=== PATIENT | female | born 1940 | race American Indian/Alaskan Native ===

== ENCOUNTER 2017-05-03 00:16 | Emergency (ER) | payer MEDICARE, OTHER ==
[2017-05-03 00:16] VITALS: BMI 29.2
--- NOTE | 2017-05-03 00:21 | ED PDOC ---
Arrival/HPI - General Time Seen by Provider: 05/03/17 00:20 Historian: Patient - History of Present Illness Narrative History of Present Illness (Text): 05/03/17 00:21 76 year old female, pmh including hypertension/hyperlipidemia/diabetes/chronic coughing which she is following up with karthik Vuong, complaining of bilateral lower extremities swelling and pain but worsened on the left lower extremity. Pt. stated that she has been having dark pigmented skin discoloration on the bilateral lower extremities with on and off swelling for months, been having worsening of the swelling to the left foot/ankle/tibial and fibular region, no chest pain or shortness of breath, no night sweat, no rash, no other medical or psychological complaints. Past Medical History - Provider Review Nursing Documentation Reviewed: Yes - Tetanus Immunization Tetanus Immunization: Unknown - Cardiac Hx Cardiac Disorders: Yes Hx Hyperlipemia: Yes Hx Hypertension: Yes - Pulmonary Hx Respiratory Disorders: No - Neurological Hx Neurological Disorder: No - HEENT Hx HEENT Disorder: No - Renal Hx Renal Disorder: No - Endocrine/Metabolic Hx Endocrine Disorders: Yes Hx Diabetes Mellitus Type 2: Yes - Hematological/Oncological Hx Blood Disorders: No - Integumentary Hx Dermatological Disorder: No - Musculoskeletal/Rheumatological Hx Musculoskeletal Disorders: No - Gastrointestinal Hx Gastrointestinal Disorders: Yes Hx Gastroesophageal Reflux: Yes - Genitourinary/Gynecological Hx Genitourinary Disorders: No - Psychiatric Hx Psychophysiologic Disorder: No Hx Substance Use: No - Past Surgical History Past Surgical History: Non-Contributing - Surgical History Hx Hysterectomy: Yes - Suicidal Assessment Feels Threatened In Home Enviroment: No Family/Social History - Physician Review Nursing Documentation Reviewed: Yes Family/Social History: Unknown Family HX Smoking Status: Never Smoked Hx Alcohol Use: No Hx Substance Use: No Allergies/Home Meds Allergies/Adverse Reactions: Allergies No Known Allergies Allergy (Verified 01/24/15 17:37) Home Medications: Home Meds Medication Instructions Recorded Confirmed Aspirin [Adult Low Dose Aspirin EC] 81 mg PO DAILY 05/03/17 05/03/17 Atorvastatin [Lipitor] 20 mg PO DAILY 05/03/17 05/03/17 Benzonatate [Tessalon Perles] 100 mg PO TID 05/03/17 05/03/17 Cholecalciferol (Vitamin D3) 400 unit PO DAILY 10/07/17 10/07/17 [Vitamin D3] Doxycycline Hyclate [Morgidox] 100 mg PO DAILY 05/03/17 05/03/17 Etodolac [Lodine] 500 mg PO DAILY 05/03/17 05/03/17 Furosemide [Lasix] 20 mg PO DAILY 05/03/17 05/03/17 Losartan [Cozaar] 50 mg PO DAILY 05/03/17 05/03/17 Metformin HCl [Metformin HCl ER] 500 mg PO DAILY 05/03/17 05/03/17 Omeprazole Magnesium [Prilosec Otc] 20 mg PO DAILY 05/03/17 05/03/17 Review of Systems - Review of Systems Constitutional: absent: Fatigue, Fevers Eyes: absent: Vision Changes ENT: absent: Hearing Changes Respiratory: absent: SOB, Cough Cardiovascular: absent: Chest Pain Gastrointestinal: Other (edema). absent: Abdominal Pain, Nausea, Vomiting Musculoskeletal: absent: Arthralgias, Back Pain Skin: absent: Rash, Pruritis Neurological: absent: Headache Physical Exam Vital Signs Reviewed: Yes Vital Signs Temp Pulse Resp Pulse Ox 05/03/17 00:36 98.5 F 86 18 100 Temperature: Afebrile Blood Pressure: Normal Pulse: Regular Respiratory Rate: Normal Appearance: Positive for: Well-Appearing, Non-Toxic, Comfortable Pain Distress: Mild Mental Status: Positive for: Alert and Oriented X 3 - Systems Exam Head: Present: Atraumatic, Normocephalic Pupils: Present: PERRL Extroacular Muscles: Present: EOMI Conjunctiva: Present: Normal Mouth: Present: Moist Mucous Membranes Pharnyx: No: ERYTHEMA, EXUDATE, TONSILS ENLARGED, Uvular Deviation, Soft Palate/ Uvular Edema Nose (External): Present: Atraumatic. No: Abrasion, Contusion, Laceration Nose (Internal): Present: Normal Inspection, No Active Bleeding. No: Rhinorrhea Neck: Present: Normal Range of Motion Respiratory/Chest: Present: Clear to Auscultation, Good Air Exchange. No: Respiratory Distress, Accessory Muscle Use Cardiovascular: Present: Regular Rate and Rhythm, Normal S1, S2, Other (1+ pedal edema on the RLE from mid tibia/fibular down to the foot with +DPPT pulses. 2+ edema on the LLE from proximal 1/3 tibia/fibular to the lt. foot. Bilateral lower extremities with hyperpigmentation and signs of chronic venuous insuffiency. ). No: Murmurs Abdomen: Present: Normal Bowel Sounds. No: Tenderness, Distention, Peritoneal Signs Back: Present: Normal Inspection Upper Extremity: Present: Normal Inspection. No: Cyanosis, Edema Lower Extremity: Present: Normal Inspection. No: Edema Neurological: Present: GCS=15, CN II-XII Intact, Speech Normal Skin: Present: Warm, Dry, Normal Color. No: Rashes Psychiatric: Present: Alert, Oriented x 3, Normal Insight, Normal Concentration Medical Decision Making ED Course and Treatment: 05/03/17 01:01 -labs/bnp -bilateral lower extremities venuous doppler -observe and reassesss 05/03/17 02:04 -Labs are nonsignificant, BNP within jimmy limit. -Bilateral lower extremities: as per preliminary report, no acute DVT -Discharge home with compression stocking, elevation, follow up with your own pmd and vascular surgeon/boom truck driver within 2 days, return to the ER for any new or worsening signs or symptoms. - Lab Interpretations Lab Results: 05/03/17 01:05 05/03/17 01:05 Lab Results 05/03/17 01:05: WBC 6.4, RBC 4.57, Hgb 13.6, Hct 41.5, MCV 90.8, MCH 29.8, MCHC 32.8, RDW 14.9 H, Plt Count 220, MPV 9.9, Gran % 48.3 L, Lymph % (Auto) 36.1 H, [place] % (Auto) 9.5 H, Eos % (Auto) 5.5 H, Baso % (Auto) 0.6, Gran # 3.09, Lymph # 2.3, [place] # 0.6, Eos # 0.4, Baso # 0.04 05/03/17 01:05: Sodium 142, Potassium 3.7, Chloride 101, Carbon Dioxide 32, Anion Gap 13, BUN 17, Creatinine 0.8, Est GFR ( Amer) > 60, Est GFR (Non- Af Amer) > 60, Random Glucose 111 H, Calcium 9.8, Total Bilirubin 0.5, AST 25, ALT 26, Alkaline Phosphatase 62, NT-Pro-B Natriuret Pep 138, Total Protein 7.2, Albumin 4.0, Globulin 3.2, Albumin/Globulin Ratio 1.3 I have reviewed the lab results: Yes Interpretation: No clinic. lab abnormalty - RAD Interpretation Radiology Orders: 05/03/17 00:51 DUPLEX LOWER EXTRM VEIN BILAT [US] Stat -Bilateral lower extremities: as per preliminary report, no acute DVT [employer]ppings: Radiologist - PA / [employer] / Resident Statement MD/DO has reviewed & agrees with the documentation as recorded. Disposition/Present on Arrival - Present on Arrival Any Indicators Present on Arrival: No History of DVT/PE: No History of Uncontrolled Diabetes: No Urinary Catheter: No History of Decub. Ulcer: No History Surgical Site Infection Following: None - Disposition Have Diagnosis and Disposition been Completed?: Yes Diagnosis: Chronic venous insufficiency, Pedal edema Disposition: HOME/ ROUTINE Disposition Time: 02:04 Patient Plan: Discharge Patient Problems: Current Active Problems Problem Status Onset Chronic venous insufficiency Acute Pedal edema Acute Condition: IMPROVED Additional Instructions: -Discharge home with compression stocking, elevation, follow up with your own pmd and vascular surgeon/boom truck driver within 2 days, return to the ER for any new or worsening signs or symptoms. Prescriptions: Compression Socks, Medium [Futuro Restoring] 1 each MC DAILY #1 each Referrals: Freddie Chapman MD [Primary Care Provider] - Follow up with primary Reynaldo Watkins Jr., MD [Staff Provider] - Follow up with primary Ed Jay MD [Staff Provider] - Follow up with primary Forms: WORK NOTE
[2017-05-03 00:38] VITALS: RESP 18; TEMP 98.5
[2017-05-03 01:22] LABS: BASO # 0.04 K/mm3 (0.0-2.0); BASO % 0.6 % (0.0-3.0); EOS # 0.4 (0.0-0.7); EOS % 5.5 % (1.5-5.0); GRAN # 3.09 (1.4-6.5); GRAN % 48.3 % (50.0-68.0); HEMATOCRIT 41.5 % (36.0-48.0); LYMPH # 2.3 (1.2-3.4); LYMPH % 36.1 % (22.0-35.0); MEAN CELL VOLUME 90.8 fl (80.0-105.0); MEAN CORPUSCULAR HEMOGLOBIN 29.8 pg (25.0-35.0); MEAN CORPUSCULAR HGB CONC 32.8 g/dl (31.0-37.0); MEAN PLATELET VOLUME 9.9 fl (7.0-11.0); MONO # 0.6 (0.1-0.6); MONO % 9.5 % (1.0-6.0); RED CELL DISTRIBUTION WIDTH 14.9 % (11.5-14.5); WHITE BLOOD COUNT 6.4 10^3/ul (4.5-11.0)
[2017-05-03 01:31] LABS: ALB/GLOB RATIO 1.3 (1.1-1.8); ALKALINE PHOSPHATASE 62 U/L (38-126); ALT/SGPT 26 U/L (7-56); AST/SGOT 25 U/L (14-36); BILIRUBIN,TOTAL 0.5 mg/dL (0.2-1.3); BLOOD UREA NITROGEN 17 mg/dL (7-21); CALCIUM 9.8 mg/dL (8.4-10.5); CARBON DIOXIDE 32 mmol/L (21-33); CHLORIDE 101 mmol/L (98-107); GFR AFRICAN-AMERICAN > 60; GLUCOSE,RANDOM 111 mg/dL (70-110); POTASSIUM 3.7 mmol/L (3.6-5.0); SODIUM 142 mmol/L (132-148); TOTAL PROTEIN 7.2 g/dL (5.8-8.3)
[2017-05-03 02:26] VITALS: BP 147/84; PULSE 75; O2SAT 99
--- NOTE | 2017-05-03 15:23 | US ---
HISTORY: Leg pain and swelling. Evaluate for DVT PHYSICIAN(S): Kevin Gray MD. TECHNIQUE: Duplex sonography and color-flow Doppler with graded compression were used to evaluate the deep venous systems of both lower extremities. FINDINGS: The visualized deep venous systems of both lower extremities are sonographically normal and compressible. Normal wave forms and augmentation are seen. There is no sonographic evidence for deep venous thrombosis in the visualized segments of both lower extremities. IMPRESSION: No sonographic evidence for deep venous thrombosis in the visualized segments of both lower extremities.
== END 2017-05-03 02:25 | disposition home or self-care (01) ==
LOC: ED 00:16
DX: I87.2 Venous insufficiency (chronic) (peripheral) (principal); R60.0 Localized edema; I10 Essential (primary) hypertension; E78.5 Hyperlipidemia, unspecified; E11.9 Type 2 diabetes mellitus without complications

== ENCOUNTER 2017-05-10 01:14 | Emergency (ER) | payer MEDICARE, OTHER ==
[2017-05-10 01:14] VITALS: BMI 29.2
[2017-05-10 01:37] VITALS: BP 194/86; PULSE 78; RESP 16; TEMP 98.3; O2SAT 98
--- NOTE | 2017-05-10 02:31 | ED PDOC ---
Arrival/HPI - General Chief Complaint: Lower Extremity Problem/Injury Time Seen by Provider: 05/10/17 01:30 Historian: Patient - History of Present Illness Narrative History of Present Illness (Text): 05/10/17 02:32 A 76 year old female, whose past medical history includes chronic venous insufficiency, presents to the emergency department complaining of increasing left foot pain and swelling over the last month. Patient reported to the emergency department a week ago for same complaint. Reports left foot itching, swelling and occasional sharp pain to ankle. Denies any trauma or injuries. Patient denies any other complaints at this time. PMD: Dr. Chapman Time/Duration: > week Symptom Onset: Sudden Symptom Course: Unchanged Activities at Onset: Rest Context: Home Past Medical History - Provider Review Nursing Documentation Reviewed: Yes - Tetanus Immunization Tetanus Immunization: Unknown - Cardiac Hx Cardiac Disorders: Yes Hx Hypertension: Yes - Pulmonary Hx Respiratory Disorders: No - Neurological Hx Neurological Disorder: No - HEENT Hx HEENT Disorder: No - Renal Hx Renal Disorder: No - Endocrine/Metabolic Hx Endocrine Disorders: Yes Hx Diabetes Mellitus Type 2: Yes - Hematological/Oncological Hx Blood Disorders: No - Integumentary Hx Dermatological Disorder: No - Musculoskeletal/Rheumatological Hx Musculoskeletal Disorders: No - Gastrointestinal Hx Gastrointestinal Disorders: Yes Hx Gastroesophageal Reflux: Yes - Genitourinary/Gynecological Hx Genitourinary Disorders: No - Psychiatric Hx Psychophysiologic Disorder: No Hx Substance Use: No - Past Surgical History Past Surgical History: Non-Contributing - Surgical History Hx Hysterectomy: Yes - Suicidal Assessment Feels Threatened In Home Enviroment: No Family/Social History - Physician Review Nursing Documentation Reviewed: Yes Family/Social History: Other (non contributory) Smoking Status: Never Smoked Hx Alcohol Use: No Hx Substance Use: No Allergies/Home Meds Allergies/Adverse Reactions: Allergies No Known Allergies Allergy (Verified 05/10/17 01:26) Home Medications: Home Meds Medication Instructions Recorded Confirmed Aspirin [Adult Low Dose Aspirin EC] 81 mg PO DAILY 05/03/17 05/10/17 Atorvastatin [Lipitor] 20 mg PO DAILY 05/03/17 05/10/17 Benzonatate [Tessalon Perles] 100 mg PO TID 05/03/17 05/10/17 Cholecalciferol (Vitamin D3) 400 unit PO DAILY 05/03/17 05/10/17 [Vitamin D3] Doxycycline Hyclate [Morgidox] 100 mg PO DAILY 05/03/17 05/10/17 Etodolac [Lodine] 500 mg PO DAILY 05/03/17 05/10/17 Furosemide [Lasix] 20 mg PO DAILY 05/03/17 05/10/17 Losartan [Cozaar] 50 mg PO DAILY 05/03/17 05/10/17 Metformin HCl [Metformin HCl ER] 500 mg PO DAILY 05/03/17 05/10/17 Omeprazole Magnesium [Prilosec Otc] 20 mg PO DAILY 05/03/17 05/10/17 Review of Systems - Physician Review All systems were reviewed & negative as marked: Yes - Review of Systems Constitutional: absent: Fevers Respiratory: absent: SOB Musculoskeletal: Other (left foot itching, swelling and pain) Physical Exam Vital Signs Reviewed: Yes Vital Signs Temp Pulse Resp BP Pulse Ox 05/10/17 01:36 98.3 F 78 16 194/86 H 98 Appearance: Positive for: Well-Appearing, Non-Toxic, Comfortable Pain Distress: None Mental Status: Positive for: Alert and Oriented X 3 - Systems Exam Head: Present: Atraumatic Extroacular Muscles: Present: EOMI Mouth: Present: Moist Mucous Membranes Neck: Present: Normal Range of Motion Respiratory/Chest: Present: Clear to Auscultation, Good Air Exchange. No: Respiratory Distress, Accessory Muscle Use Cardiovascular: Present: Regular Rate and Rhythm, Normal S1, S2. No: Murmurs Abdomen: Present: Normal Bowel Sounds. No: Tenderness, Distention, Peritoneal Signs Upper Extremity: No: Cyanosis, Edema Lower Extremity: Present: Edema (trace edema b/l mid chow to feet), Neurovascularly Intact, Other (pulses palpable b/l; strength and sensation intact. ) Neurological: Present: GCS=15, CN II-XII Intact, Motor Func Grossly Intact, Normal Sensory Function Skin: Present: Warm, Dry. No: Rashes Psychiatric: Present: Alert, Oriented x 3 Medical Decision Making ED Course and Treatment: 05/10/17 03:11 Radiology of left ankle: No acute fracture, interpreted by me. 05/10/17 03:13 pt resting comfortably no distress. she is pleasant and appears well. she had neg doppler and labs a week ago for same complaint and edema is quite minimal on my exam. disc results, plan for pmd f/u on friday, and rtr. - RAD Interpretation Radiology Orders: 05/10/17 01:44 ANKLE LEFT 3 VIEWS ROUTINE [RAD] Stat - Scribe Statement The provider has reviewed the documentation as recorded by the Ella Rodriguez Provider Scribe Attestation: All medical record entries made by the Scribe were at my direction and personally dictated by me. I have reviewed the chart and agree that the record accurately reflects my personal performance of the history, physical exam, medical decision making, and the department course for this patient. I have also personally directed, reviewed, and agree with the discharge instructions and disposition. Disposition/Present on Arrival - Present on Arrival Any Indicators Present on Arrival: No History of DVT/PE: No History of Uncontrolled Diabetes: No Urinary Catheter: No History of Decub. Ulcer: No History Surgical Site Infection Following: None - Disposition Have Diagnosis and Disposition been Completed?: Yes Diagnosis: Leg pain, Leg swelling Disposition: HOME/ ROUTINE Disposition Time: 03:13 Condition: GOOD Additional Instructions: Please follow up with your doctor on Friday. Return to the ER for any worsening symptoms or for any other concerns. Referrals: Freddie Chapman MD [Primary Care Provider] - Follow up with primary Forms: [employer] (Setswana)
--- NOTE | 2017-05-10 09:35 | RAD ---
PROCEDURE: Left Ankle Radiographs. HISTORY: pain COMPARISON: None FINDINGS: BONES: Slight cortical irregularity of the cortex of the inferior aspect medial malleolus possibly representing some mild degenerative changes with enthesophyte formation however the possibility of a nondisplaced fracture cannot be completely excluded. Repeat radiographs 5-10 days recommended further evaluation. . Prominent posterior and smaller plantar surface calcaneal enthesophytes are present JOINTS: Mild degenerative osteoarthritis. Ankle mortise maintained. Talar dome intact SOFT TISSUES: There is mild soft tissue swelling overlying the medial malleolus. Mild OTHER FINDINGS: None. IMPRESSION: Slight cortical irregularity of the inferior aspect medial malleolus which could represent some degenerative changes however the possibility of a nondisplaced fracture cannot be completely excluded. Recommend repeat radiographs 5-10 days as most fractures become radiographically evident in this timeframe. Mild soft tissue swelling overlying the medial malleolus. . Note this report was placed in PA review folder followup
== END 2017-05-10 03:15 | disposition home or self-care (01) ==
LOC: ED 01:14
DX: M79.89 Other specified soft tissue disorders (principal); M79.672 Pain in left foot; E11.9 Type 2 diabetes mellitus without complications; I10 Essential (primary) hypertension; I87.2 Venous insufficiency (chronic) (peripheral)

== ENCOUNTER 2017-10-12 16:28 | Emergency (ER) | payer MEDICARE, OTHER ==
[2017-10-12 16:28] VITALS: BMI 29.2
[2017-10-12] MEDS ORDERED: TDAP Vaccine 0.5 mL Syr IM ONE (18:12)
[2017-10-12 19:05] LABS: BASO # 0.06 K/mm3 (0.0-2.0); BASO % 0.5 % (0.0-3.0); EOS # 0.1 (0.0-0.7); EOS % 1.1 % (1.5-5.0); GRAN # 8.01 (1.4-6.5); GRAN % 73.5 % (50.0-68.0); HEMOGLOBIN 14.8 g/dL (12.0-16.0); LYMPH # 1.8 (1.2-3.4); LYMPH % 16.3 % (22.0-35.0); MEAN CELL VOLUME 90.7 fl (80.0-105.0); MEAN CORPUSCULAR HEMOGLOBIN 29.8 pg (25.0-35.0); MEAN CORPUSCULAR HGB CONC 32.9 g/dl (31.0-37.0); MEAN PLATELET VOLUME 9.9 fl (7.0-11.0); MONO # 0.9 (0.1-0.6); MONO % 8.6 % (1.0-6.0); RBC 4.96 10^6/uL (3.5-6.1); RED CELL DISTRIBUTION WIDTH 14.6 % (11.5-14.5); WHITE BLOOD COUNT 10.9 10^3/ul (4.5-11.0)
--- NOTE | 2017-10-12 19:08 | ED PDOC ---
Arrival/HPI - General Chief Complaint: Trauma Time Seen by Provider: 10/12/17 17:34 Historian: Patient - History of Present Illness Narrative History of Present Illness (Text): 10/12/17 19:02 77yr old female presents today with luq abd pain, right hand pain and right sided head injury with laceration s/p fall at 10am this morning. pt states she tripped and fell landing on the sidewalk today. pt denies LOC. c/o right sided frontal headache with bleeding laceration. pt states she hasn't been able to stop the bleeding since the injury. pt denies neck pain. no vomiting/diarrhea. no cp or sob. pt c/o pain to dorsal aspect of right hand. no medications taken at home. pt states she does take a baby aspirin daily. pt denies urinary symptoms. no back pain. no dizziness or weakness. pt denies numbness, weakness, tingling in the extremities. no other complaints. Past Medical History - Provider Review Nursing Documentation Reviewed: Yes - Travel History Have you recently traveled outside [place] w/in the past 3 mons?: No - Infectious Disease Hx of Infectious Diseases: None - Tetanus Immunization Tetanus Immunization: Unknown - Cardiac Hx Cardiac Disorders: Yes Hx Hypertension: Yes - Pulmonary Hx Respiratory Disorders: No - Neurological Hx Neurological Disorder: No - HEENT Hx HEENT Disorder: No - Renal Hx Renal Disorder: No - Endocrine/Metabolic Hx Endocrine Disorders: Yes Hx Diabetes Mellitus Type 2: Yes - Hematological/Oncological Hx Blood Disorders: No - Integumentary Hx Dermatological Disorder: No - Musculoskeletal/Rheumatological Hx Musculoskeletal Disorders: No - Gastrointestinal Hx Gastrointestinal Disorders: Yes Hx Gastroesophageal Reflux: Yes - Genitourinary/Gynecological Hx Genitourinary Disorders: No - Psychiatric Hx Psychophysiologic Disorder: No Hx Substance Use: No - Past Surgical History Past Surgical History: Non-Contributing - Surgical History Hx Hysterectomy: Yes - Anesthesia Hx Anesthesia: Yes Hx Anesthesia Reactions: No Hx Malignant Hyperthermia: No - Suicidal Assessment Feels Threatened In Home Enviroment: No Family/Social History - Physician Review Nursing Documentation Reviewed: Yes Family/Social History: Unknown Family HX Smoking Status: Never Smoked Hx Alcohol Use: No Hx Substance Use: No Allergies/Home Meds Allergies/Adverse Reactions: Allergies pcn Adverse Reaction (Uncoded 10/12/17 17:28) SWELLING Home Medications: Home Meds Medication Instructions Recorded Confirmed Aspirin [Adult Low Dose Aspirin EC] 81 mg PO DAILY 05/03/17 10/12/17 Atorvastatin [Lipitor] 20 mg PO DAILY 05/03/17 10/12/17 Benzonatate [Tessalon Perles] 100 mg PO TID 05/03/17 10/12/17 Cholecalciferol (Vitamin D3) 400 unit PO DAILY 05/03/17 10/12/17 [Vitamin D3] Doxycycline Hyclate [Morgidox] 100 mg PO DAILY 05/03/17 10/12/17 Etodolac [Lodine] 500 mg PO DAILY 05/03/17 10/12/17 Furosemide [Lasix] 20 mg PO DAILY 05/03/17 10/12/17 Losartan [Cozaar] 50 mg PO DAILY 05/03/17 10/12/17 Metformin HCl [Metformin HCl ER] 500 mg PO DAILY 05/03/17 10/12/17 Omeprazole Magnesium [Prilosec Otc] 20 mg PO DAILY 05/03/17 10/12/17 Review of Systems - Review of Systems Constitutional: absent: Fatigue, Fevers Eyes: absent: Vision Changes, Photophobia, Eye Pain ENT: absent: Sinus Congestion Respiratory: absent: SOB, Cough Cardiovascular: absent: Chest Pain, Palpitations Gastrointestinal: Abdominal Pain (right sided upper abdominal pain). absent: Constipation, Diarrhea, Nausea, Vomiting Genitourinary Female: absent: Dysuria, Frequency, Hematuria Musculoskeletal: Arthralgias (right hand/wrist pain). absent: Back Pain, Neck Pain Skin: absent: Rash, Pruritis Neurological: Headache. absent: Dizziness Physical Exam Vital Signs Reviewed: Yes Vital Signs Temp Pulse Resp BP Pulse Ox 10/12/17 23:30 98.3 F 80 17 153/90 H 97 10/12/17 20:14 178/90 H 10/12/17 19:02 194/92 H 10/12/17 17:51 98.0 F 84 18 98 Temperature: Afebrile Blood Pressure: Normal Pulse: Regular Respiratory Rate: Normal Appearance: Positive for: Well-Appearing, Non-Toxic, Comfortable Pain Distress: None Mental Status: Positive for: Alert and Oriented X 3 - Systems Exam Head: Present: Tenderness (+ ttp over right superior orbit), Swelling, Laceration (right forehead; there is a 1cm linear laceration with tenderness and surrounding edema;) Pupils: Present: PERRL Extroacular Muscles: Present: EOMI Conjunctiva: Present: Normal Ears: Present: Normal, NORMAL TM Mouth: Present: Moist Mucous Membranes Pharnyx: Present: Normal Neck: Present: Normal Range of Motion. No: MIDLINE TENDERNESS, Paraspinal Tenderness Respiratory/Chest: Present: Clear to Auscultation, Good Air Exchange. No: Respiratory Distress, Accessory Muscle Use, Decreased Breath Sounds, Retracting , Rhonchi Cardiovascular: Present: Regular Rate and Rhythm. No: Murmurs, Tachycardic Abdomen: Present: Tenderness (+ LUQ tenderness), Normal Bowel Sounds, Guarding. No: Distention, Peritoneal Signs, Rebound Back: Present: Normal Inspection. No: Midline Tenderness, Paraspinal Tenderness Upper Extremity: Present: NORMAL PULSES, Tenderness (right hand; + edema and ecchymosis noted over the dorsal aspect of the hand; + ttp over the 2-5th metacarpals; + minimal dorsal wrist tenderness; full rom of wrist. no snuff box tenderness), Swelling, Neurovascularly Intact, Capillary Refill < 2s Lower Extremity: Present: Normal Inspection, Normal ROM Neurological: Present: GCS=15, Speech Normal Skin: Present: Warm, Dry, Normal Color. No: Rashes Psychiatric: Present: Alert, Oriented x 3 Medical Decision Making ED Course and Treatment: 10/12/17 19:15 77yr old female with head injury, right hand pain and abdominal pain s/p fall around 10am this morning. cbc; wnl cmp: glucose; 131 lipase: wnl cxr; no infiltrate, no effusion right hand xray; no fracture right wrist xray: no fracture head ct: FINDINGS: Brain: There is prominence of sulci, gyri and ventricles. There is no midline shift. There is an age indeterminate lacunar infarct in the right basal ganglia. There are no intra- axial or extra axial mass lesions or areas of hemorrhage. Contreras-white differentiation is maintained. Ventricles: See above Bony structures: Cranial vault is intact. Soft tissues: There is right facial/temporal laceration with bruising. Sinuses: There is no acute sinusitis. Ears and mastoids: Middle ears and mastoids unremarkable. Orbits: Orbital contents are unremarkable. 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 There degenerative changes in the visualized portions of the spine. Soft tissues: There is right facial/temporal soft tissue bruising with laceration. There is air in the soft tissues. Lymph nodes: There is no pathologic adenopathy. Vascular: Lack of contrast limits evaluation of vascular structures Orbits: Orbital contents are unremarkable. Salivary glands: Parotid and submandibular glands are unremarkable. Sinuses: There is no acute sinusitis. Ears and mastoids: Middle ears and mastoids are unremarkable. Dental: Streak artifact from dental fillings degrades image quality. Brain: No focal abnormalities are seen in visualized portion of the brain. Airway: Airway is unremarkable. IMPRESSION: Right facial/temporal laceration bruising, no underlying fracture ct chest/abd/pelvis with IV contrast: FINDINGS: Artifacts: Motion artifact degrades image quality. Lungs: unremarkable Pleural space: Trachea and main bronchi are patent. There is no pneumothorax. There fibrotic changes in both lungs greatest in the lower lobes. There is no lobar or segmental consolidation. There are no effusions. Heart: unremarkable Thyroid: Thyroid is not optimally demonstrated. Right lobe is heterogeneous. Bones/joints: Bony structures are osteopenic. There degenerative changes. Soft tissues: unremarkable Vasculature: The heart is enlarged. There are coronary artery calcifications.There is no aneurysm or dissection. There is perfusion of the 3 arch vessels.There are vascular calcifications. Main pulmonary artery is normal in caliber. Bolus timing and motion limits evaluation of peripheral pulmonary arteries. Lymph nodes: The mediastinum: There are multiple mildly enlarged mediastinal nodes. There mildly enlarged hilar nodes. There is a hiatal hernia. Esophagus is unremarkable. Upper abdomen: Refer to bone report for abdominal findings IMPRESSION: Cardiomegaly and atherosclerotic disease; pulmonary fibrosis greatest at the lung bases; no acute intrathoracic injury, no fracture seen Additional nonemergent findings as described above. EXAM: CT Abdomen and Pelvis With Intravenous Contrast EXAM DATE/TIME: 10/12/2017 7:19 PM CLINICAL HISTORY: 77 years old, female; Pain; Abdominal pain; Chest pain; Patient HX: Trauma/ luq abd tenderness TECHNIQUE: Axial computed tomography images of the abdomen and pelvis with intravenous contrast. All CT scans at this facility use one or more dose reduction techniques, viz.: automated exposure control; ma/kV adjustment per patient size (including targeted exams where dose is matched to indication; i.e. head); or iterative reconstruction technique. Coronal and sagittal reformatted images were created and reviewed. CONTRAST: 50 mL of OMNIPAQUE 350 administered intravenously. COMPARISON: There are no prior studies for comparison. FINDINGS: Artifacts: Motion artifact degrades image quality. Streak artifact degrades image quality. Lower thorax: Refer to prior report for chest findings ABDOMEN: Liver: There is fatty infiltration of the liver. Gallbladder and bile ducts: Gallbladder is distended. There small calcified stones.Common duct is unremarkable. Pancreas: unremarkable Spleen: Spleen is unremarkable. There is an accessory spleen in the left upper quadrant. Adrenals: There is mild thickening of the both adrenals. Kidneys and ureters: unremarkable Stomach and bowel: Stomach is almost completely empty. Rotation is normal small bowel is mildly distended with fluid and air. There is no obstruction. Ileocecal region is unremarkable. Appendix and terminal ileum are unremarkable. There is moderate stool in the colon. There is extensive sigmoid diverticulosis. Appendix: See stomach and bowel PELVIS: Bladder: unremarkable Reproductive: Uterus is absent. There are no adnexal masses. ABDOMEN and PELVIS: Intraperitoneal space: There is no free air or free fluid. Bones/joints: Bony structures are osteopenic. There is anterolisthesis L4 and L5. There is disc bulging L4-L5 and L5-S1. The There is severe degenerative changes in the right hip. Soft tissues: unremarkable Vasculature: There are vascular calcifications. There is mild dilatation of the infrarenal abdominal aorta, 2.17 m in maximal diameter. There is mural thrombus. Lymph nodes: There is no pathologic adenopathy. IMPRESSION: No acute solid visceral or bowel injury no fracture seen; fatty liver; gallstones Additional nonemergent findings as described above. pt seen and evaluated by dr. villaseñor; wounds irrigated with copious amounts of NS using high pressure irrigation laceration repair with dermabond; right hand placed into volar and thumb spica splint; pt was advised to f/u with the orthopedist. 10/12/17 22:52 discussed all results in depth with the patient and her son. stressed importance of f/u with PMD for abnormal ct results. copy of ct results given to patient to f/u with pmd Patient verbalizes understanding of discharge instructions and need for immediate followup. all aspects of this case were discussed the attending of record. impression; fall, head injury, laceration, forehead, hand injury tylenol every 4 hours as needed for pain follow up with the orthopedist within the next 2 days follow up with the primary care physician within the next [address] scans rest,ice, elevation keep wound clean and dry return immediately if signs of infection develop; high fevers, increasing pain, redness, swelling or purulent discharge develop return immediately if any other concerning symptoms develop. Reassessment Condition: Re-examined, Improved - Lab Interpretations Lab Results: 10/12/17 18:50 10/12/17 18:50 Lab Results 10/12/17 18:50: Lipase 93 10/12/17 18:50: WBC 10.9 D, RBC 4.96, Hgb 14.8, Hct 45.0, MCV 90.7, MCH 29.8, MCHC 32.9, RDW 14.6 H, Plt Count 234, MPV 9.9, Gran % 73.5 H, Lymph % (Auto) 16.3 L, [place] % (Auto) 8.6 H, Eos % (Auto) 1.1 L, Baso % (Auto) 0.5, Gran # 8.01 H, Lymph # (Auto) 1.8, [place] # (Auto) 0.9 H, Eos # (Auto) 0.1, Baso # (Auto) 0.06 10/12/17 18:50: Sodium 143, Potassium 4.0, Chloride 102, Carbon Dioxide 31, Anion Gap 15, BUN 15, Creatinine 0.8, Est GFR ( Amer) > 60, Est GFR (Non- Af Amer) > 60, Random Glucose 131 H, Calcium 10.4, Total Bilirubin 0.9, AST 30, ALT 30, Alkaline Phosphatase 61, Total Protein 7.6, Albumin 4.1, Globulin 3.6, Albumin/Globulin Ratio 1.2 10/12/17 18:50: PT 12.9 H, INR 1.13 H, APTT 34.7 10/12/17 08:30: Urine Color Yellow, Urine Appearance Clear, Urine pH 6.5, Ur Specific [place] 1.020, Urine Protein Negative, Urine Glucose (UA) Negative, Urine Ketones Negative, Urine Blood Negative, Urine Nitrate Negative, Urine Bilirubin Negative, Urine Urobilinogen 0.2, Ur Leukocyte Esterase Negative - RAD Interpretation Radiology Orders: 10/12/17 18:12 HEAD W/O CONTRAST [CT] Stat MAXILLOFACIAL W/O CONTRAST [CT] Stat 10/12/17 18:14 HAND RIGHT 3 VIEWS [RAD] Stat WRIST, RIGHT 3 VIEWS [RAD] Stat 10/12/17 19:09 CHEST ONE VIEW [RAD] Stat 10/12/17 19:19 CHEST,ABD,PEL W/IV CONT ONLY [CT] Stat - Medication Orders Current Medication Orders: Discontinued Medications Acetaminophen (Tylenol 325mg Tab) 975 mg PO STAT STA Stop: 10/12/17 18:14 Last Admin: 10/12/17 18:52 Dose: 975 mg MAR Pain/Vitals Document 10/12/17 18:52 GMD (Rec: 10/12/17 18:52 GMD [id number]) Presence of Pain Presence of Pain Yes Location Left, Right or Bilateral Right Pain Location Body Site Wrist Sodium Chloride (Sodium Chloride 0.9%) 500 mls @ 999 mls/hr IV .Q31M STA Stop: 10/12/17 19:52 Last Admin: 10/12/17 19:58 Dose: 999 mls/hr eMAR Start Stop Document 10/12/17 19:58 GMD (Rec: 10/12/17 19:59 GMD [id number]) Intravenous Solution Start Date 10/12/17 Start Time 19:58 End Date 10/12/17 End time 20:28 Total Infusion Time 30 Tetanus/Reduced Diphtheria/Acell Pertussis (Boostrix Vaccine Inj) 0.5 ml IM .ONCE ONE Stop: 10/12/17 18:13 Last Admin: 10/12/17 18:53 Dose: 0.5 ml Immunization Registry Document 10/12/17 18:53 GMD (Rec: 10/12/17 18:53 GMD [id number]) Immunization Registry Consent Date 08/27/17 Procedure: Wound Repair - Procedure Procedure: Wound Repair: forehead laceration - Performed by Performed by: Mid-level Provider - Indications Indication(s):: Laceration - Location Location:: Face (right side of forehead ) Shape:: Linear Dimensions Length cm: 1.5cm Depth:: Epidermis - Debris Debris:: None - Irrigated Irrigated with ml of normal saline: copious amounts of NS using high pressure irrigation - Complexity Complexity:: Simple (one layer) - Wound repair method Young:: Tissue glue - Complications Complications: NONE - Patient tolerated procedure Patient Tolerated Procedure:: Well Procedures - Splinting Location: right hand Hand-Made Type: fiberglass Splint: thumb spica (and volar splint) Pre-Proc Neuro Vasc Exam: normal Post-Proc Neuro Vasc Exam: normal Disposition/Present on Arrival - Present on Arrival Any Indicators Present on Arrival: No History of DVT/PE: No History of Uncontrolled Diabetes: No Urinary Catheter: No History of Decub. Ulcer: No History Surgical Site Infection Following: None - Disposition Have Diagnosis and Disposition been Completed?: Yes Diagnosis: Head injury, Abdominal pain, Laceration of forehead, Hand pain, Abnormal CT of the abdomen Disposition: HOME/ ROUTINE Disposition Time: 22:58 Patient Plan: Discharge Condition: GOOD Discharge Instructions (ExitCare): Laceration Repair With Glue (DC), Hand Pain (DC), Head Injury Observation (DC), Hand Pain Additional Instructions: tylenol every 4 hours as needed for pain follow up with the orthopedist within the next 2 days follow up with the primary care physician within the next [address] scans rest,ice, elevation keep wound clean and dry return immediately if signs of infection develop; high fevers, increasing pain, redness, swelling or purulent discharge develop return immediately if any other concerning symptoms develop. Referrals: Freddie Chapman MD [Primary Care Provider] - Follow up with primary Pj Spear MD [Staff Provider] - Follow up with primary Fidencio Soto MD [Staff Provider] - Follow up with primary Ricardo Mendiola DO [Staff Provider] - Follow up with primary Forms: [employer] (Latvian)
[2017-10-12 19:15] LABS: ALB/GLOB RATIO 1.2 (1.1-1.8); ALBUMIN 4.1 g/dL (3.0-4.8); ALT/SGPT 30 U/L (7-56); AST/SGOT 30 U/L (14-36); BLOOD UREA NITROGEN 15 mg/dL (7-21); CALCIUM 10.4 mg/dL (8.4-10.5); GFR AFRICAN-AMERICAN > 60; GFR NON-AFRICAN AMERICAN > 60
[2017-10-12] MEDS ORDERED: Sodium Chloride 0.9% 250 ML IV STA (19:20)
[2017-10-12] MEDS ORDERED: Sodium Chloride 0.9% 500 ML IV STA (19:22)
[2017-10-12 19:33] LABS: INR 1.13 (0.93-1.08); PARTIAL THROMBOPLASTIN TIME 34.7 Seconds (25.1-36.5); PROTHROMBIN TIME 12.9 SECONDS (9.4-12.5)
[2017-10-12] MEDS ORDERED: Iohexol 350 MG/100 ML VIAL ONE (20:12)
[2017-10-12 20:56] LABS: PH,URINE 6.5 (4.7-8.0); URINE BILIRUBIN NEGATIVE (NEGATIVE); URINE BLOOD NEGATIVE (NEGATIVE); URINE GLUCOSE (UA) NEGATIVE (NEGATIVE); URINE LEUKOCYTE ESTERASE NEGATIVE Leu/uL (NEGATIVE); URINE PROTEIN NEGATIVE mg/dL (<30 mg/dL); URINE UROBILINOGEN 0.2 E.U./dL (<1 E.U./dL)
[2017-10-12 20:57] LABS: URINE APPEARANCE CLEAR (CLEAR); URINE COLOR YELLOW (YELLOW)
--- NOTE | 2017-10-12 21:44 | CT ---
EXAM: CT Maxillofacial Without Intravenous Contrast EXAM DATE/TIME: 10/12/2017 6:12 PM CLINICAL HISTORY: 77 years old, female; Injury or trauma; Fall; Initial encounter; Abrasion; Forehead; Patient HX: Fall head injury, right forehead/orbital TECHNIQUE: Axial computed tomography images of the face without intravenous contrast. All CT scans at this facility use one or more dose reduction techniques, viz.: automated exposure control; ma/kV adjustment per patient size (including targeted exams where dose is matched to indication; i.e. head); or iterative reconstruction technique. Coronal and sagittal reformatted images were created and reviewed. COMPARISON: There are no prior studies for comparison. FINDINGS: Bones/joints: There are no facial bone fractures. There degenerative changes in the visualized portions of the spine. Soft tissues: There is right facial/temporal soft tissue bruising with laceration. There is air in the soft tissues. Lymph nodes: There is no pathologic adenopathy. Vascular: Lack of contrast limits evaluation of vascular structures Orbits: Orbital contents are unremarkable. Salivary glands: Parotid and submandibular glands are unremarkable. Sinuses: There is no acute sinusitis. Ears and mastoids: Middle ears and mastoids are unremarkable. Dental: Streak artifact from dental fillings degrades image quality. Brain: No focal abnormalities are seen in visualized portion of the brain. Airway: Airway is unremarkable. IMPRESSION: Right facial/temporal laceration bruising, no underlying fracture
--- NOTE | 2017-10-12 21:47 | CT ---
EXAM: CT Head Without Intravenous Contrast EXAM DATE/TIME: 10/12/2017 6:12 PM CLINICAL HISTORY: 77 years old, female; Condition or disease; Headache TECHNIQUE: Axial computed tomography images of the head/brain without intravenous contrast. All CT scans at this facility use one or more dose reduction techniques, viz.: automated exposure control; ma/kV adjustment per patient size (including targeted exams where dose is matched to indication; i.e. head); or iterative reconstruction technique. Coronal and sagittal reformatted images were created and reviewed. COMPARISON: There are no prior studies for comparison. FINDINGS: Brain: There is prominence of sulci, gyri and ventricles. There is no midline shift. There is an age indeterminate lacunar infarct in the right basal ganglia. There are no intra-axial or extra axial mass lesions or areas of hemorrhage. Contreras-white differentiation is maintained. Ventricles: See above Bony structures: Cranial vault is intact. Soft tissues: There is right facial/temporal laceration with bruising. Sinuses: There is no acute sinusitis. Ears and mastoids: Middle ears and mastoids unremarkable. Orbits: Orbital contents are unremarkable. 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
--- NOTE | 2017-10-12 22:02 | CT ---
EXAM: CT Chest With Intravenous Contrast CLINICAL HISTORY: 77 years old, female; Pain; Abdominal pain; Chest pain; Patient HX: Trauma/ luq abd tenderness TECHNIQUE: Axial computed tomography images of the chest with intravenous contrast. All CT scans at this facility use one or more dose reduction techniques, viz.: automated exposure control; ma/kV adjustment per patient size (including targeted exams where dose is matched to indication; i.e. head); or iterative reconstruction technique. Coronal and sagittal reformatted images were created and reviewed. CONTRAST: 50 mL of OMNIPAQUE 350 administered intravenously. COMPARISON: There are no prior studies for comparison. FINDINGS: Artifacts: Motion artifact degrades image quality. Lungs: unremarkable Pleural space: Trachea and main bronchi are patent. There is no pneumothorax. There fibrotic changes in both lungs greatest in the lower lobes. There is no lobar or segmental consolidation. There are no effusions. Heart: unremarkable Thyroid: Thyroid is not optimally demonstrated. Right lobe is heterogeneous. Bones/joints: Bony structures are osteopenic. There degenerative changes. Soft tissues: unremarkable Vasculature: The heart is enlarged. There are coronary artery calcifications.There is no aneurysm or dissection. There is perfusion of the 3 arch vessels.There are vascular calcifications. Main pulmonary artery is normal in caliber. Bolus timing and motion limits evaluation of peripheral pulmonary arteries. Lymph nodes: The mediastinum: There are multiple mildly enlarged mediastinal nodes. There mildly enlarged hilar nodes. There is a hiatal hernia. Esophagus is unremarkable. Upper abdomen: Refer to bone report for abdominal findings IMPRESSION: Cardiomegaly and atherosclerotic disease; pulmonary fibrosis greatest at the lung bases; no acute intrathoracic injury, no fracture seen Additional nonemergent findings as described above. EXAM: CT Abdomen and Pelvis With Intravenous Contrast EXAM DATE/TIME: 10/12/2017 7:19 PM CLINICAL HISTORY: 77 years old, female; Pain; Abdominal pain; Chest pain; Patient HX: Trauma/ luq abd tenderness TECHNIQUE: Axial computed tomography images of the abdomen and pelvis with intravenous contrast. All CT scans at this facility use one or more dose reduction techniques, viz.: automated exposure control; ma/kV adjustment per patient size (including targeted exams where dose is matched to indication; i.e. head); or iterative reconstruction technique. Coronal and sagittal reformatted images were created and reviewed. CONTRAST: 50 mL of OMNIPAQUE 350 administered intravenously. COMPARISON: There are no prior studies for comparison. FINDINGS: Artifacts: Motion artifact degrades image quality. Streak artifact degrades image quality. Lower thorax: Refer to prior report for chest findings ABDOMEN: Liver: There is fatty infiltration of the liver. Gallbladder and bile ducts: Gallbladder is distended. There small calcified stones.Common duct is unremarkable. Pancreas: unremarkable Spleen: Spleen is unremarkable. There is an accessory spleen in the left upper quadrant. Adrenals: There is mild thickening of the both adrenals. Kidneys and ureters: unremarkable Stomach and bowel: Stomach is almost completely empty. Rotation is normal small bowel is mildly distended with fluid and air. There is no obstruction. Ileocecal region is unremarkable. Appendix and terminal ileum are unremarkable. There is moderate stool in the colon. There is extensive sigmoid diverticulosis. Appendix: See stomach and bowel PELVIS: Bladder: unremarkable Reproductive: Uterus is absent. There are no adnexal masses. ABDOMEN and PELVIS: Intraperitoneal space: There is no free air or free fluid. Bones/joints: Bony structures are osteopenic. There is anterolisthesis L4 and L5. There is disc bulging L4-L5 and L5-S1. The There is severe degenerative changes in the right hip. Soft tissues: unremarkable Vasculature: There are vascular calcifications. There is mild dilatation of the infrarenal abdominal aorta, 2.17 m in maximal diameter. There is mural thrombus. Lymph nodes: There is no pathologic adenopathy. IMPRESSION: No acute solid visceral or bowel injury no fracture seen; fatty liver; gallstones Additional nonemergent findings as described above.
[2017-10-12 23:51] VITALS: BP 153/90; PULSE 80; RESP 17; TEMP 98.3; O2SAT 97
--- NOTE | 2017-10-13 09:29 | RAD ---
PROCEDURE: CHEST RADIOGRAPH, 1 VIEW HISTORY: abd pain/trauma COMPARISON: 01/01/2017 FINDINGS: LUNGS: Chronic interstitial changes PLEURA: No pneumothorax or pleural fluid seen. CARDIOVASCULAR: Normal. OSSEOUS STRUCTURES: No significant abnormalities. VISUALIZED UPPER ABDOMEN: Normal. OTHER FINDINGS: None. IMPRESSION: Chronic interstitial changes
--- NOTE | 2017-10-13 10:01 | RAD ---
PROCEDURE: Right Hand Radiographs. HISTORY: fall, injury COMPARISON: None. FINDINGS: BONES: Normal. No fracture. JOINTS: Degenerative changes are seen at the base of the thumb SOFT TISSUES: Normal. OTHER FINDINGS: None. IMPRESSION: Degenerative changes of the base of the thumb. No evidence of fracture
--- NOTE | 2017-10-13 10:12 | RAD ---
PROCEDURE: Right Wrist Radiographs. HISTORY: wrist injury COMPARISON: None. FINDINGS: BONES: Normal. No fracture. JOINTS: Severe degenerative changes are seen at the base of the thumb. SOFT TISSUES: Normal. OTHER FINDINGS: None. IMPRESSION: Severe degenerative changes of the base of the thumb
== END 2017-10-12 23:30 | disposition home or self-care (01) ==
LOC: ED 16:28
DX: S01.81XA Laceration without foreign body of other part of head, initial encounter (principal); W01.0XXA Fall on same level from slipping, tripping and stumbling without subsequent striking against object, initial encounter; Y92.480 Sidewalk as the place of occurrence of the external cause; R10.12 Left upper quadrant pain; M79.641 Pain in right hand; R93.5 Abnormal findings on diagnostic imaging of other abdominal regions, including retroperitoneum; Z23 Encounter for immunization; E11.9 Type 2 diabetes mellitus without complications
CPT/HCPCS: 12011; 29130; 70450; 70486; 71045; 71260; 73110; 73130; 74177; 80053; 81003; 83690; 85025; 85610; 85730; 90471; 90715; 99285; J7040; Q9967

== ENCOUNTER 2018-05-03 20:36 | Emergency (ER) | payer MEDICARE, OTHER ==
[2018-05-03 21:06] VITALS: RESP 18
[2018-05-03 21:07] VITALS: BMI 29.7
--- NOTE | 2018-05-03 21:08 | ED PDOC ---
Arrival/HPI <Otilio Damian - Last Filed: 05/03/18 22:18> - General Historian: Patient - History of Present Illness Narrative History of Present Illness (Text): 05/03/18 21:05 77yo female who present with complaint of lower back and b/l knee pain x one week. States she have had this pain in the past, but it usually resolve same day, but it persisted this time. Also notes that she never had pain to her posterior knee in the past until now. Denies chest pain, SOB, focal weakness, urinary/fecal incontinence, abdominal pain, recent trauma, any other complaint. <Carlos Spring A - Last Filed: 05/03/18 23:29> - General Time Seen by Provider: 05/03/18 20:48 Past Medical History - Provider Review Nursing Documentation Reviewed: Yes - Infectious Disease Hx of Infectious Diseases: None - Tetanus Immunization Tetanus Immunization: Unknown - Cardiac Hx Cardiac Disorders: Yes Hx Hypertension: Yes - Pulmonary Hx Respiratory Disorders: No - Neurological Hx Neurological Disorder: No - HEENT Hx HEENT Disorder: No - Renal Hx Renal Disorder: No - Endocrine/Metabolic Hx Endocrine Disorders: Yes Hx Diabetes Mellitus Type 2: Yes - Hematological/Oncological Hx Blood Disorders: No - Integumentary Hx Dermatological Disorder: No - Musculoskeletal/Rheumatological Hx Musculoskeletal Disorders: No - Gastrointestinal Hx Gastrointestinal Disorders: Yes Hx Gastroesophageal Reflux: Yes - Genitourinary/Gynecological Hx Genitourinary Disorders: No - Psychiatric Hx Psychophysiologic Disorder: No Hx Substance Use: No - Past Surgical History Past Surgical History: Non-Contributing - Surgical History Hx Hysterectomy: Yes - Anesthesia Hx Anesthesia: Yes Hx Anesthesia Reactions: No Hx Malignant Hyperthermia: No - Suicidal Assessment Feels Threatened In Home Enviroment: No <Carlos Spring A - Last Filed: 05/03/18 23:29> Family/Social History - Physician Review Nursing Documentation Reviewed: Yes Family/Social History: Unknown Family HX Smoking Status: Never Smoked Hx Alcohol Use: No Hx Substance Use: No <Carlos Spring A - Last Filed: 05/03/18 23:29> Allergies/Home Meds <Otilio Damian - Last Filed: 05/03/18 22:18> <Carlos Spring A - Last Filed: 05/03/18 23:29> Allergies/Adverse Reactions: Allergies No Known Allergies Allergy (Verified 05/03/18 22:55) Home Medications: Home Meds Medication Instructions Recorded Confirmed Aspirin [Adult Low Dose Aspirin EC] 81 mg PO DAILY 05/03/17 05/03/18 Atorvastatin [Lipitor] 20 mg PO DAILY 05/03/17 05/03/18 Benzonatate [Tessalon Perles] 100 mg PO TID 05/03/17 05/03/18 Cholecalciferol (Vitamin D3) 2,000 iu PO DAILY 05/03/17 05/03/18 [Vitamin D3] Doxycycline Hyclate [Morgidox] 100 mg PO DAILY 05/03/17 05/03/18 Furosemide [Lasix] 20 mg PO DAILY 05/03/17 05/03/18 Losartan [Cozaar] 50 mg PO DAILY 05/03/17 05/03/18 Metformin HCl [Metformin HCl ER] 500 mg PO DAILY 05/03/17 05/03/18 Omeprazole Magnesium [Prilosec Otc] 20 mg PO DAILY 05/03/17 05/03/18 Review of Systems - Physician Review All systems were reviewed & negative as marked: Yes - Review of Systems Constitutional: Normal Eyes: Normal ENT: Normal Respiratory: Normal Cardiovascular: Normal Gastrointestinal: Normal Genitourinary Female: Normal Musculoskeletal: Arthralgias (B/L knee), Back Pain Skin: Normal Neurological: Normal Endocrine: Normal Hemo/Lymphatic: Normal Psychiatric: Normal <Carlos Spring - Last Filed: 05/03/18 23:29> Physical Exam Vital Signs Temp Pulse Resp BP Pulse Ox 05/03/18 21:05 97.6 F 76 18 187/91 H 96 <Otilio Damian - Last Filed: 05/03/18 22:18> Vital Signs Reviewed: Yes Temperature: Afebrile Blood Pressure: Normal Pulse: Regular Respiratory Rate: Normal Appearance: Positive for: Well-Appearing, Non-Toxic, Comfortable Pain Distress: None Mental Status: Positive for: Alert and Oriented X 3 - Systems Exam Head: Present: Atraumatic, Normocephalic Pupils: Present: PERRL Extroacular Muscles: Present: EOMI Conjunctiva: Present: Normal Mouth: Present: Moist Mucous Membranes Neck: Present: Normal Range of Motion Respiratory/Chest: Present: Clear to Auscultation, Good Air Exchange. No: Respiratory Distress, Accessory Muscle Use Cardiovascular: Present: Regular Rate and Rhythm, Normal S1, S2. No: Murmurs Abdomen: No: Tenderness, Distention, Peritoneal Signs Back: No: Midline Tenderness, Paraspinal Tenderness, Pain with Leg Raise Upper Extremity: Present: Normal Inspection. No: Cyanosis, Edema Lower Extremity: Present: NORMAL PULSES, Normal ROM, Neurovascularly Intact. No: Edema, CALF TENDERNESS, Debi's Sign, Tenderness, Swelling, Erythema, Deformity, Temperature Abnormalties Neurological: Present: GCS=15, CN II-XII Intact, Speech Normal Skin: Present: Warm, Dry, Normal Color. No: Rashes Psychiatric: Present: Alert, Oriented x 3, Normal Insight, Normal Concentration <Carlos Spring - Last Filed: 05/03/18 23:29> Medical Decision Making - RAD Interpretation Radiology Orders: 05/03/18 21:09 KNEE W PATELLA BILAT 3 VIEW [RAD] Stat DUPLEX LOWER EXTRM VEIN BILAT [US] Stat 05/03/18 21:10 LS SPINE WITH OBL > 18 YRS OLD [RAD] Stat <Otilio Damian - Last Filed: 05/03/18 22:18> ED Course and Treatment: 05/03/18 22:57 Pt in ED for stated history. She was ambulatory and neurologically intact. Doppler US was negative for DVT b/l B/L knee xray - DJD. No acute finding LS xray - DJD. No acute finding Result was DW the pt. She was treated with Toradol in ED. Will DC home with Naprosyn. Referred to ortho. <Carlos Spring A - Last Filed: 05/03/18 23:29> - PA / [employer] / Resident Statement RUBI has reviewed & agrees with the documentation as recorded. RUBI has examined the patient and agrees with the treatment plan. <Otilio Damian - Last Filed: 05/03/18 22:18> Disposition/Present on Arrival <Otilio Damian - Last Filed: 05/03/18 22:18> - Present on Arrival Any Indicators Present on Arrival: No History of DVT/PE: No History of Uncontrolled Diabetes: No Urinary Catheter: No History Surgical Site Infection Following: None - Disposition Have Diagnosis and Disposition been Completed?: Yes Disposition Time: 23:00 Patient Plan: Discharge <Carlos Spring - Last Filed: 05/03/18 23:29> - Disposition Diagnosis: Knee pain, Back pain Disposition: HOME/ ROUTINE Patient Problems: Current Active Problems Problem Status Onset Back pain Acute Knee pain Acute Condition: STABLE Discharge Instructions (ExitCare): Low Back Pain (DC), Chronic Knee Pain (DC) Additional Instructions: Follow up with your doctor/orthopedist Return to ED for any new or worsening symptoms Prescriptions: Naproxen [Naprosyn Tab] 375 mg PO BID #20 tab Referrals: Anat Odonnell MD [Staff Provider] - Follow up with primary
[2018-05-03 22:52] VITALS: BP 188/91; PULSE 72; TEMP 97.8; O2SAT 99
--- NOTE | 2018-05-04 09:41 | RAD ---
Date of service: 2018-05-03 22:09:01 PROCEDURE: Radiographs of the Lumbar Spine. HISTORY: back pain COMPARISON: No prior. FINDINGS: BONES: Vertebral bodies maintained in height. Grade 1 anterolisthesis at L4-5 likely degenerative. No evidence of spondylolysis. Normal alignment maintained elsewhere. DISC SPACES: Unremarkable. OTHER FINDINGS: None. IMPRESSION: Grade 1 anterolisthesis at L4-5, likely degenerative. Otherwise unremarkable.
--- NOTE | 2018-05-04 09:50 | RAD ---
Date of service: 05/03/2018 PROCEDURE: Left Knee Radiographs. HISTORY: Pain. COMPARISON: None. FINDINGS: BONES: Normal. No fracture. JOINTS: Narrowing of medial joint compartment bilaterally. Lesser narrowing of the lateral compartment. Patellofemoral compartment appears preserved. No articular erosions. Findings consistent with medial and lateral compartment osteoarthritis. JOINT EFFUSION: None. OTHER FINDINGS: None. 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
== END 2018-05-03 23:11 | disposition home or self-care (01) ==
LOC: ED 20:36
DX: M25.561 Pain in right knee (principal); M25.562 Pain in left knee; M54.9 Dorsalgia, unspecified; E11.9 Type 2 diabetes mellitus without complications; I10 Essential (primary) hypertension
CPT/HCPCS: 72110; 73562; 93970; 96372; 99283; J1885

== ENCOUNTER 2018-09-02 10:26 | Outpatient (CLI) | payer MEDICARE, OTHER | END 2018-09-02 10:27 | disposition home or self-care (01) | LOC: RAD 10:26 | DX: Z12.31 Encounter for screening mammogram for malignant neoplasm of breast (principal) ==

== ENCOUNTER 2018-09-15 10:28 | Outpatient (CLI) | payer MEDICARE, OTHER | END 2018-09-15 10:29 | disposition home or self-care (01) | LOC: RAD 10:28 ==

== ENCOUNTER 2018-10-05 09:53 | Outpatient (CLI) | payer MEDICARE, OTHER | END 2018-10-07 09:54 | disposition home or self-care (01) | LOC: RAD 09:53 | DX: J84.112 Idiopathic pulmonary fibrosis (principal); R91.1 Solitary pulmonary nodule (principal); R91.8 Other nonspecific abnormal finding of lung field; K80.20 Calculus of gallbladder without cholecystitis without obstruction; K44.9 Diaphragmatic hernia without obstruction or gangrene ==

== ENCOUNTER 2018-12-03 10:22 | Outpatient (CLI) | payer MEDICARE, OTHER | END 2018-12-03 10:23 | disposition home or self-care (01) | LOC: LAB 10:22 ==